=== PATIENT | male | born 1960 | race American Indian/Alaskan Native ===

== ENCOUNTER 2019-01-05 19:10 | Emergency (ER) | payer OTHER ==
--- NOTE | 2019-01-05 20:06 | Emergency Department Report ---
Chief Complaint: High BP Stated Complaint: BLOOD PRESSURE Time Seen by Provider: 01/05/19 20:01 - HPI History of Present Illness: pt states that he has a WALLIS checked his BP and it was 175/116 per pt no vision changes no numbness, no new weakness PMHx of DM, HTN, CVA with residual left sided weakness pt states he takes hydralazine, lisinopril, amlodipine pt states he took hydralazine and lisinopril today BP is 180/112 in triage - Exam Vital Signs: Vital Signs 01/05/19 19:15 Temperature 98.4 F Pulse Rate 93 H Respiratory 18 Rate Blood Pressure 200/118 [Right] O2 Sat by Pulse 98 Oximetry MSE screening note: Focused history and physical exam performed. Due to findings the following was ordered: labs, CT head ED Disposition for MSE Condition: Stable
[2019-01-05 20:39] LABS: Basophils % (Auto) 0.8 % (0.0-1.8); Hemoglobin 16.1 gm/dl (11.8-15.2); Lymphocytes # (Auto) 1.2 K/mm3 (1.2-5.4); Mean Corpuscular HGB Conc 35 % (32-34); Mean Corpuscular Volume 92 fl (84-94); Monocytes # (Auto) 0.4 K/mm3 (0.0-0.8); Monocytes % (Auto) 7.8 % (0.0-7.3); Platelet Count 179 K/mm3 (140-440); Red Blood Count 4.99 M/mm3 (3.65-5.03); Red Cell Distribution Width 13.8 % (13.2-15.2)
[2019-01-05 20:53] LABS: Albumin 3.6 g/dL (3.9-5); Calcium 9.1 mg/dL (8.4-10.2)
--- NOTE | 2019-01-05 21:53 | Cat Scan Report ---
PROCEDURE: CT HEAD/BRAIN WO CON HISTORY: WALLIS, BP elevated, hx of CVA FINDINGS: Unenhanced CT of the brain was performed and demonstrates no acute intracranial hemorrhage, extra-axial fluid collection, midline shift or mass effect. The ventricles and basal cisterns are no t effaced. The mastoid air cells and middle ears appear clear. There is no evidence of acute sinusitis. IMPRESSION: No acute intracranial hemorrhage This document is electronically signed by Nabil Morrison MD., January 05 2019 09:51:31 PM ET
[2019-01-05] MEDS ORDERED: TYLENOL PO ONE (22:35)
--- NOTE | 2019-01-05 22:52 | Emergency Department Report ---
ED General Adult HPI - General Chief complaint: High BP Stated complaint: BLOOD PRESSURE Time Seen by Provider: 01/05/19 20:01 Source: patient, RN notes reviewed Mode of arrival: Ambulatory Limitations: No Limitations - History of Present Illness Initial comments: This is a pleasant 58-year-old gentleman. The patient is not known to this provider previously. He cannot recall the name of his primary care doctor. He reports a history of hypertension and stroke. Stroke has resulted in minor left-sided deficits. He presents to the emergency room with a complaint of headache and high blood pressure. Patient reports a non sudden, non-thunderclap headache, bitemporal and frontal which started last night. The headache is not the most intense headache of his life. The last time he had a similar headache was last year. He also endorses nausea, but no vomiting. He then reports that he checked his blood pressure at home, and found it to be hira vated. He also admits to consuming caffeinated beverages this morning, which he typically does not do. His headache is mostly resolved at this point in time. He denies neck pain, chest pain, abdominal pain, shortness of breath. He reports nausea, but no vomiting, and when further asked to clarify, indicates that he feels "hungry." -: Gradual Location: face Radiation: non-radiation Severity scale (0 -10): 0 Quality: aching Consistency: intermittent Improves with: none Worsens with: none - Related Data Allergies Allergy/AdvReac Type Severity Reaction Status Date / Time No Known Allergies Allergy Unverified 01/05/19 20:06 ED Review of Systems ROS: Stated complaint: BLOOD PRESSURE Other details as noted in HPI Constitutional: denies: fever Eyes: denies: eye discharge ENT: denies: epistaxis Respiratory: denies: cough Cardiovascular: denies: chest pain Gastrointestinal: nausea. denies: vomiting Genitourinary: denies: dysuria Neurological: headache. denies: weakness, numbness, paresthesias, confusion, abnormal gait ED Past Medical Hx - Past Medical History Hx Hypertension: Yes Hx CVA: Yes (2018 with left-sided weakness) Hx Diabetes: Yes - Surgical History Past Surgical History?: No - Social History Smoking Status: Current Every Day Smoker Substance Use Type: None ED Physical Exam - General Limitations: No Limitations General appearance: alert, in no apparent distress - Head Head exam: Present: atraumatic, normocephalic - Eye Eye exam: Present: normal appearance, PERRL, EOMI, other (visual acuity intact to finger counting, color perception, reading at a close distance). Absent: nystagmus - ENT ENT exam: Present: normal exam, normal orophraynx, mucous membranes moist, normal external ear exam - Neck Neck exam: Present: normal inspection, full ROM. Absent: tenderness, meningismus - Respiratory Respiratory exam: Present: normal lung sounds bilaterally. Absent: respiratory distress - Cardiovascular Cardiovascular Exam: Present: regular rate, normal rhythm, normal heart sounds. Absent: bradycardia, tachycardia, irregular rhythm, systolic murmur, diastolic murmur, rubs, gallop - GI/Abdominal GI/Abdominal exam: Present: soft. Absent: distended, tenderness, guarding, rebound, rigid, pulsatile mass - Rectal Rectal exam: Present: deferred - Extremities Exam Extremities exam: Present: normal inspection, full ROM, other (2+ pulses noted in the bilateral upper, lower extremities. Compartments soft. No long bony te nderness. The pelvis is stable.). Absent: pedal edema, joint swelling, calf tenderness - Back Exam Back exam: Present: normal inspection, full ROM. Absent: tenderness, CVA tenderness (R), paraspinal tenderness, vertebral tenderness - Neurological Exam Neurological exam: Present: alert, oriented X3, normal gait, motor sensory deficit (patient has 4 out of 5 strength left upper, left lower extremity. Reports intact sensation to light touch in 4 extremities. Reports that left- sided findings are chronic, and not new, worsening or different.), other (there is no facial droop. The tongue is midline. Extraocular movements are intact bilaterally. V1, V2, V3 intact to light touch in the bilateral facial distributions. 5/5 strength right upper, right lower extremities. There is no pass pointing right upper extremity. Heel to lara intact in the right upper extremity.) - Psychiatric Psychiatric exam: Present: normal affect, normal mood - Skin Skin exam: Present: warm, dry, intact, normal color. Absent: rash ED Course Vital Signs 01/05/19 01/05/19 01/05/19 19:15 20:02 21:06 Temperature 98.4 F 98.4 F Pulse Rate 93 H 93 H 69 Respiratory 18 18 13 Rate Blood Pressure 180/112 Blood Pressure 200/118 174/98 [Right] O2 Sat by Pulse 98 98 99 Oximetry 01/05/19 22:05 Temperature Pulse Rate 63 Respiratory 11 L Rate Blood Pressure Blood Pressure 174/95 [Right] O2 Sat by Pulse 98 Oximetry ED Medical Decision Making - Lab Data Result diagrams: 01/05/19 20:23 01/05/19 20:23 Vital Signs 01/05/19 01/05/19 01/05/19 19:15 20:02 21:06 Temperature 98.4 F 98.4 F Pulse Rate 93 H 93 H 69 Respiratory 18 18 13 Rate Blood Pressure 180/112 Blood Pressure 200/118 174/98 [Right] O2 Sat by Pulse 98 98 99 Oximetry 01/05/19 22:05 Temperature Pulse Rate 63 Respiratory 11 L Rate Blood Pressure Blood Pressure 174/95 [Right] O2 Sat by Pulse 98 Oximetry Lab Results 01/05/19 01/05/19 Range/Units 20:23 20:23 WBC 5.0 (4.5-11.0) K/mm3 RBC 4.99 (3.65-5.03) M/mm3 Hgb 16.1 H (11.8-15.2) gm/dl Hct 46.0 H (35.5-45.6) % MCV 92 (84-94) fl MCH 32 (28-32) pg MCHC 35 H (32-34) % RDW 13.8 (13.2-15.2) % Plt Count 179 (140-440) K/mm3 Lymph % (Auto) 24.0 (13.4-35.0) % Runnels % (Auto) 7.8 H (0.0-7.3) % Eos % (Auto) 1.0 (0.0-4.3) % Baso % (Auto) 0.8 (0.0-1.8) % Lymph # 1.2 (1.2-5.4) K/mm3 Runnels # 0.4 (0.0-0.8) K/mm3 Eos # 0.0 (0.0-0.4) K/mm3 Baso # 0.0 (0.0-0.1) K/mm3 Seg Neutrophils % 66.4 (40.0-70.0) % Seg Neutrophils # 3.3 (1.8-7.7) K/mm3 Sodium 143 (137-145) mmol/L Potassium 3.5 L (3.6-5.0) mmol/L Chloride 103.8 (98-107) mmol/L Carbon Dioxide 29 (22-30) mmol/L Anion Gap 14 mmol/L BUN 17 (9-20) mg/dL Creatinine 1.3 (0.8-1.5) mg/dL Estimated GFR 57 ml/min BUN/Creatinine Ratio 13 % Glucose 112 H (75-100) mg/dL Calcium 9.1 (8.4-10.2) mg/dL Total Bilirubin 0.60 (0.1-1.2) mg/dL AST 29 (5-40) units/L ALT 30 (7-56) units/L Alkaline Phosphatase 85 (35-129) units/L Total Protein 6.6 (6.3-8.2) g/dL Albumin 3.6 L (3.9-5) g/dL Albumin/Globulin Ratio 1.2 % - EKG Data -: EKG Interpreted by [facility] EKG shows normal: sinus rhythm Rate: normal - EKG Data When compared to previous EKG there are: previous EKG unavailable 01/05/19 22:53 EKG shows a normal sinus rhythm, 71 bpm, normal axis, QTC within normal limits, left ventricular hypertrophy, atrial enlargement, poor R-wave progression, not having chest pain, this is an abnormal EKG, there is no prior for comparison, this EKG is not consistent with ST elevation myocardial infarction. - Radiology Data Radiology results: report reviewed, image reviewed Noncontrast CT scan of the brain is negative for acute disease. - Medical Decision Making Differential diagnosis, including but not limited to: Hypertension, migraine headache, tension headache, cluster headache Assessment and plan: 58-year-old gentleman with a primary complaint of hypertension and headache. The patient is afebrile with reassuring vital signs and clinically sober. Neurologically has baseline weakness in his left arm and left leg from her prior event, but he reports that this is not new, worsening or different. The patient is smiling and engaging with myself and staff members, and reported to nursing staff that he wanted to be discharged so he could "go home and have an old man libertarian". The patient does not appear to have an emergent medical condition at this time, and he is medically suitable to follow up with outpatient primary care doctor for further evaluation of headache and elevated blood pressure. Critical care attestation.: If time is entered above; I have spent that time in minutes in the direct care of this critically ill patient, excluding procedure time. ED Disposition Clinical Impression: Elevated blood pressure reading, Headache Disposition: [id number] TO HOME OR SELFCARE Is pt being admited?: No Does the pt Need Aspirin: No Condition: Good Additional Instructions: Continue outpatient medications. Follow up with the primary care doctor for hypertension within the next 2-3 weeks. Remain compliant with antihypertensive medications. Avoid consumption of caffeine, and stimulants. Make certain to get 6-8 hours of good quality sleep every evening. Long-term complications of hypertension and elevated blood pressure include stroke, heart attack, disability, loss of quality of life. Therefore, it is very important to follow up with outpatient primary care for hypertension. Please return to the emergency room right away with new pain, worsening pain, migration of pain, projectile vomiting, change in mental status, confusion, inability to tolerate liquid feeds, new, worsening or different symptoms. Referrals: PRIMARY CARE, [Primary Care Provider] - 3-5 Days [facility] [Provider Group] - 3-5 Days [facility] [Provider Group] - 3-5 Days
[2019-01-05 23:58] VITALS: BP 168/117
== END 2019-01-05 23:59 | disposition home or self-care (01) ==
LOC: ED 19:10
DX: I10 Essential (primary) hypertension (principal); E11.9 Type 2 diabetes mellitus without complications; F17.200 Nicotine dependence, unspecified, uncomplicated; Z86.73 Personal history of transient ischemic attack (TIA), and cerebral infarction without residual deficits
CPT/HCPCS: 36415; 70450; 80053; 85025; 93005; 93010